=== PATIENT | male | born 1965 | race Caucasian/White ===

== ENCOUNTER 2017-02-07 07:09 | Emergency (ER) | payer BC ==
[2017-02-07] MEDS ORDERED: NS 0.9% 1000 ML* 1,000 ML IV ONE ×2 (08:13→10:24)
[2017-02-07 08:41] LABS: Hematocrit 45 % (42-52); Hemoglobin 15.8 g/dl (14.0-18.0); Mean Corpuscular HGB Conc 35 g/dl (31-36); Mean Corpuscular Hemoglobin 33 pg (27-31); Mean Corpuscular Volume 94 fL (80-94); Mean Platelet Volume 8 um3 (7.4-10.4); Red Blood Count 4.83 10^6/ul (4.0-5.4); Red Cell Distribution Width 13 % (10.5-15); White Blood Count 5.5 10^3/ul (3.5-10.8)
[2017-02-07 08:54] LABS: Albumin 4.5 g/dL (3.2-5.2); BUN/Creatinine Ratio 14.6 (8-20); Calcium 9.7 mg/dL (8.6-10.3); EGFR African American 105.8 (>60); EGFR Non-African American 82.3 (>60); Globulin 2.5 g/dL (2-4); Potassium 3.7 mmol/L (3.5-5.0); Total Bilirubin 0.4 mg/dL (0.2-1.0)
[2017-02-07] MEDS ORDERED: Iohexol 350* (CONTRAST) 500 ML MDV IV ONE (09:09)
[2017-02-07 09:19] VITALS: BP 127/78
[2017-02-07 09:27] LABS: TSH (Thyroid Stimulating Horm) 3.58 mcIU/mL (0.34-5.60)
--- NOTE | 2017-02-07 10:00 | RAD ---
HISTORY: Headache, left eye visual changes COMPARISONS: None TECHNIQUE: Multiple contiguous axial CT scans were obtained of the head and neck After the administration of nonionic intravenous contrast timed to the systemic arterial phase of contrast enhancement. Coronal and sagittal multiplanar reformations are submitted for review. Multiple 3-D maximum intensity projection reconstructions are also submitted for review. FINDINGS: CTA NECK: AORTIC ARCH: There is a normal three-vessel branching pattern of the aortic arch. There is no ostial or proximal stenosis of the cephalic great vessels. RIGHT VERTEBRAL ARTERY: The right vertebral artery is patent along its course, without stenosis. LEFT VERTEBRAL ARTERY: The left vertebral artery is patent along its course, without stenosis. DOMINANCE: The right vertebral artery is dominant. RIGHT COMMON CAROTID ARTERY: The right common carotid artery is patent. The right carotid bifurcation occurs at C4 RIGHT INTERNAL CAROTID ARTERY: There is no right internal carotid artery stenosis by NASCET criteria. RIGHT EXTERNAL CAROTID ARTERY: The right external carotid artery is unremarkable. LEFT COMMON CAROTID ARTERY: The left common carotid artery is patent. The left carotid bifurcation occurs at C4 LEFT INTERNAL CAROTID ARTERY: There is no left internal carotid artery stenosis by NASCET criteria. LEFT EXTERNAL CAROTID ARTERY: The left external carotid artery is unremarkable. VENOUS CIRCULATION: The venous system is unremarkable. SALIVARY GLANDS: The parotid glands, submandibular glands, sublingual glands are normal. NASAL CAVITY/NASOPHARYNX: The nasal cavity and nasopharynx are normal. ORAL CAVITY/OROPHARYNX: The oral cavity is obscured by streak artifact from dental amalgam. The visualized oral cavity and oropharynx are unremarkable. LARYNGEAL APPARATUS/HYPOPHARYNX: The laryngeal apparatus and hypopharynx are normal. UPPER AIRWAY/UPPER ESOPHAGUS: The visualized upper airway and esophagus are normal. LUNG APICES: The lung apices are clear. THYROID GLAND: The thyroid gland is normal. LYMPH NODES: There is no lymphadenopathy by size criteria. BONES AND SOFT TISSUES: No bone or soft tissue abnormalities are noted. CTA HEAD: INTRACRANIAL CIRCULATION: There is no aneurysm, vascular malformation, occlusion, or stenosis of the visualized intracranial circulation. The anterior communicating artery complex is clear. Bilateral posterior communicating arteries are identified. VENOUS CIRCULATION: The venous system is unremarkable. PERFUSION: There is no obvious parenchymal perfusion deficit. HEMORRHAGE/INFARCT: There is no hemorrhage or acute infarct. Evaluation of the presence of subarachnoid hemorrhage is limited by the presence of intravenous contrast MASSES/SHIFT: There is no mass or shift. EXTRA-AXIAL SPACES: There are no extra-axial fluid collections. SULCI AND VENTRICLES: The sulci and ventricles are normal in size and position for the patient's stated age. CEREBRUM: There are no focal parenchymal abnormalities. BRAINSTEM: There is faint enhancement of the central phil suggestive of a capillary telangiectasia. This is considered an incidental finding. CEREBELLUM: There are no focal parenchymal abnormalities. PARANASAL SINUSES: The paranasal sinuses are clear. ORBITS: The orbits are unremarkable. BONES AND SOFT TISSUE: No bone or soft tissue abnormalities are noted. OTHER: There is no abnormal enhancement. IMPRESSION: 1. NO ACUTE INTRACRANIAL PATHOLOGY. PLEASE NOTE THAT EVALUATION FOR THE PRESENCE OF SUBARACHNOID HEMORRHAGE IS LIMITED BY THE PRESENCE OF INTRAVENOUS CONTRAST. 2. NO ANEURYSM, HIGH FLOW VASCULAR MALFORMATION, OCCLUSION, OR STENOSIS OF THE VISUALIZED INTRACRANIAL CIRCULATION.. 3. NO INTERNAL CAROTID ARTERY STENOSIS BY NASCET CRITERIA. CPT II Codes: 3100F
[2017-02-07] MEDS ORDERED: Metoclopramide IV* 5 MG/ML 2 ML VIAL IV ONE (10:24)
[2017-02-07] MEDS ORDERED: Ketorolac INJ* 30 MG/ML 1 ML VIAL IV ONE (10:24)
[2017-02-07] MEDS ORDERED: diPHENhydraMINE IV* 50 MG/ML 1 ml VIAL (BENADRYL) IV ONE (10:24)
--- NOTE | 2017-02-07 15:28 | ED ---
Kip Sanchez Thomas, scribed for Michael Ramon MD on 02/07/17 at 0759 . Headache - HPI Summary HPI Summary: Pt is a 51 y/o M presenting to the ED c/o EASON that began this morning. The location of EASON is behind the L-sided, frontal. The pt's EASON pain improves when the pt walks. Additionally c/o vision changes with aura in L eye, L flank pain ( location: "kidney area"), confusion, dizziness (when standing). Patient reports that his vision is normal in the ED. L flank pain was pressure in quality and resolved in 10 minutes. 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 Denies neck pain, CP. Patient notes that previous to this visit he occasionally developed simultaneous neck pain and CP that "catches him off guard ". Aura was described as a crescent shape. The pt has not experienced Sx like these before. He denies a PMHx of EASON and migraine. The pt did not sleep last night. - History Of Current Complaint Chief Complaint: EDHeadache Stated Complaint: VISUAL DISTURBANCE Time Seen by Provider: 02/07/17 07:42 Hx Obtained From: Patient Onset/Duration: Sudden Onset, Started hours ago - this AM Character: Pressure - currently Location of Headache: Other: - behind the L eye Aggravating Factor: Nothing Allevating Factors: Other (Noted In Comments) - alleviated with rest Associated Signs And Symptoms: Dizziness, Visual Changes - POS: aura in L eye, cresent shaped, Other (Noted In Comments) - POS: ; L flank pain, confusion; NEG : neck pain, CP - Allergies/Home Medications Allergies/Adverse Reactions: Allergies Allergy/AdvReac Type Severity Reaction Status Date / Time No Known Allergies Allergy Verified 07/01/14 12:21 PMH/Surg Hx/FS Hx/Imm Hx Previously Healthy: No Respiratory History: Denies: Hx Lung Cancer Opthamlomology History: Denies: Hx Legally Blind Infectious Disease History: No Infectious Disease History: Denies: History Other Infectious Disease, Traveled Outside the [place] in Last 30 Days - Family History Known Family History: Positive: Cardiac Disease - mother, [place], in her 50s - Social History Alcohol Use: None Substance Use Type: Reports: None Smoking Status (MU): Never Smoked Tobacco Review of Systems Constitutional: Negative Positive: Other - POS: vision changes with aura in L eye ENT: Negative, Other - NEG: neck pain Cardiovascular: Negative Negative: Chest Pain Respiratory: Negative Gastrointestinal: Negative Positive: flank pain - L Musculoskeletal: Negative Skin: Negative Neurological: Other - POS: confusion, dizziness Positive: Headache Psychological: Normal All Other Systems Reviewed And Are Negative: Yes Physical Exam Triage Information Reviewed: Yes Vital Signs On Initial Exam: Initial Vitals Temp Pulse Resp BP Pulse Ox 97.6 F 80 18 123/90 96 02/07/17 07:20 02/07/17 07:20 02/07/17 07:20 02/07/17 07:20 02/07/17 07:20 Vital Signs Reviewed: Yes Appearance: Positive: Well-Appearing, No Pain Distress Skin: Positive: Warm, Skin Color Reflects Adequate Perfusion, Dry Head/Face: Positive: Normal Head/Face Inspection Eyes: Positive: Normal ENT: Positive: Normal ENT inspection Neck: Positive: Supple, Nontender Respiratory/Lung Sounds: Positive: Clear to Auscultation, Breath Sounds Present Cardiovascular: Positive: RRR Abdomen Description: Positive: Nontender, No Organomegaly Bowel Sounds: Positive: Present Musculoskeletal: Positive: Normal Neurological: Positive: Normal, Sensory/Motor Intact, Alert, Oriented to Person Place, Time, CN Intact II-III Psychiatric: Positive: Normal - Justo Coma Scale Coma Scale Total: 15 Diagnostics - Vital Signs Vital Signs Temp Pulse Resp BP Pulse Ox 02/07/17 07:24 97.3 F 83 18 123/90 96 02/07/17 07:20 97.6 F 80 18 123/90 96 - Laboratory Lab Results: Lab Results 02/07/17 02/07/17 02/07/17 Range/Units 08:26 08:26 08:26 WBC 5.5 (3.5-10.8) 10^3/ul RBC 4.83 (4.0-5.4) 10^6/ul Hgb 15.8 (14.0-18.0) g/dl Hct 45 (42-52) % MCV 94 (80-94) fL MCH 33 H (27-31) pg MCHC 35 (31-36) g/dl RDW 13 (10.5-15) % Plt Count 204 (150-450) 10^3/ul MPV 8 (7.4-10.4) um3 Neut % (Auto) 70.3 (38-83) % Lymph % (Auto) 18.8 L (25-47) % [place] % (Auto) 8.5 (1-9) % Eos % (Auto) 1.7 (0-6) % Baso % (Auto) 0.7 (0-2) % Absolute Neuts (auto) 3.9 (1.5-7.7) 10^3/ul Absolute Lymphs (auto) 1.0 (1.0-4.8) 10^3/ul Absolute Monos (auto) 0.5 (0-0.8) 10^3/ul Absolute Eos (auto) 0.1 (0-0.6) 10^3/ul Absolute Basos (auto) 0 (0-0.2) 10^3/ul Absolute Nucleated RBC 0 10^3/ul Nucleated RBC % 0 INR (Anticoag Therapy) 0.84 L (0.89-1.11) Sodium 136 (133-145) mmol/L Potassium 3.7 (3.5-5.0) mmol/L Chloride 106 (101-111) mmol/L Carbon Dioxide 27 (22-32) mmol/L Anion Gap 3 (2-11) mmol/L BUN 14 (6-24) mg/dL Creatinine 0.96 (0.67-1.17) mg/dL Est GFR ( Amer) 105.8 (>60) Est GFR (Non-Af Amer) 82.3 (>60) BUN/Creatinine Ratio 14.6 (8-20) Glucose 102 H (70-100) mg/dL Lactic Acid (0.5-2.0) mmol/L Calcium 9.7 (8.6-10.3) mg/dL Magnesium 2.0 (1.9-2.7) mg/dL Total Bilirubin 0.40 (0.2-1.0) mg/dL AST 22 (13-39) U/L ALT 41 (7-52) U/L Alkaline Phosphatase 63 (34-104) U/L Troponin I 0.00 (<0.04) ng/mL Total Protein 7.0 (6.4-8.9) g/dL Albumin 4.5 (3.2-5.2) g/dL Globulin 2.5 (2-4) g/dL Albumin/Globulin Ratio 1.8 (1-3) TSH 3.58 (0.34-5.60) mcIU/mL 02/07/17 02/07/17 Range/Units 08:26 12:00 WBC (3.5-10.8) 10^3/ul RBC (4.0-5.4) 10^6/ul Hgb (14.0-18.0) g/dl Hct (42-52) % MCV (80-94) fL MCH (27-31) pg MCHC (31-36) g/dl RDW (10.5-15) % Plt Count (150-450) 10^3/ul MPV (7.4-10.4) um3 Neut % (Auto) (38-83) % Lymph % (Auto) (25-47) % [place] % (Auto) (1-9) % Eos % (Auto) (0-6) % Baso % (Auto) (0-2) % Absolute Neuts (auto) (1.5-7.7) 10^3/ul Absolute Lymphs (auto) (1.0-4.8) 10^3/ul Absolute Monos (auto) (0-0.8) 10^3/ul Absolute Eos (auto) (0-0.6) 10^3/ul Absolute Basos (auto) (0-0.2) 10^3/ul Absolute Nucleated RBC 10^3/ul Nucleated RBC % INR (Anticoag Therapy) (0.89-1.11) Sodium (133-145) mmol/L Potassium (3.5-5.0) mmol/L Chloride (101-111) mmol/L Carbon Dioxide (22-32) mmol/L Anion Gap (2-11) mmol/L BUN (6-24) mg/dL Creatinine (0.67-1.17) mg/dL Est GFR ( Amer) (>60) Est GFR (Non-Af Amer) (>60) BUN/Creatinine Ratio (8-20) Glucose (70-100) mg/dL Lactic Acid 1.1 (0.5-2.0) mmol/L Calcium (8.6-10.3) mg/dL Magnesium (1.9-2.7) mg/dL Total Bilirubin (0.2-1.0) mg/dL AST (13-39) U/L ALT (7-52) U/L Alkaline Phosphatase (34-104) U/L Troponin I 0.01 (<0.04) ng/mL Total Protein (6.4-8.9) g/dL Albumin (3.2-5.2) g/dL Globulin (2-4) g/dL Albumin/Globulin Ratio (1-3) TSH (0.34-5.60) mcIU/mL Result Diagrams: 02/07/17 08:26 02/07/17 08:26 Lab Statement: Any lab studies that have been ordered have been reviewed, and results considered in the medical decision making process. - CT CTA Head/Neck CT Interpretation: No Acute Changes - 1. NO ACUTE INTRACRANIAL PATHOLOGY. PLEASE NOTE THAT EVALUATION FOR THE PRESENCE OF SUBARACHNOID HEMORRHAGE IS LIMITED BY THE PRESENCE OF INTRAVENOUS CONTRAST. 2. NO ANEURYSM, HIGH FLOW VASCULAR MALFORMATION, OCCLUSION, OR STENOSIS OF THE VISUALIZED INTRACRANIAL CIRCULATION.. 3. NO INTERNAL CAROTID ARTERY STENOSIS BY NASCET CRITERIA. CT Interpretation Completed By: Radiologist - EKG 08:42 Cardiac Rate: NL - 62 bpm EKG Rhythm: Sinus Rhythm EKG Interpretation: NSR Re-Evaluation - Re-Evaluation First Eval Re-Evaluation Time: 12:36 Change: Unchanged Headache Course/Dx - Course Course Of Treatment: Mr. Camp presented with an unusual story which most likely was migrainous, however, he has no history and is 51. He is very tired from working overnight and under a good deal of stress. I was worried about a dissection and a CTA was negative.. I spoke with Dr. Jones and she recommended MRI. The patient initially agreed to this but apparently got tired of waiting and left. - Diagnoses Provider Diagnoses: Headache - Physician Notifications Discussed Care Of Patient With: Pily Jones Time Discussed With Above Provider: 10:30 Instructed by Provider To: Other - Discussed patient. At 10:41, case was discussed and Dr. Jones recommendd an MRI, to which the patient agreed. Discharge - Discharge Plan Condition: Stable Disposition: AGAINST MEDICAL ADVICE Referrals: Robel Nichols MD [Primary Care Provider] - The documentation as recorded by the Kip sinclair Thomas accurately reflects the service I personally performed and the decisions made by me, Michael Ramon MD.
== END 2017-02-07 12:55 | disposition left against medical advice (07) ==
LOC: ED 07:09
DX: R51 Headache (principal); R07.9 Chest pain, unspecified; R10.84 Generalized abdominal pain; R42 Dizziness and giddiness
CPT/HCPCS: 36415; 70496; 70498; 80053; 83605; 83735; 84443; 84484; 85025; 85610; 93005; 96365; 96375; 99282; J1885; Q9967